=== PATIENT | female | born 1975 | race Caucasian/White ===

== ENCOUNTER → 2020-12-13 | Outpatient (CLI) | payer OTHER ==
[~2020-12-13] MED LIST: IRON18TA PO
[2020-12-13 14:06] LABS: BASOPHILS % (AUTO) 1 % (0-1); EOSINOPHILS % (AUTO) 1 % (1-7); LYMPHOCYTES % (AUTO) 32 % (22-44); MEAN CORPUSCULAR HEMOGLOBIN 19.7 pg (27.0-34.8); MEAN CORPUSCULAR HGB CONC 30.2 g/dL (32.4-35.8); MEAN PLATELET VOLUME 8.2 fL (7.4-10.4); MONOCYTES % (AUTO) 8 % (2-9); NEUTROPHILS % (AUTO) 57 % (42-75); PLATELET COUNT 332 x10^3/uL (130-400); RED BLOOD COUNT 4.54 x10^6/uL (3.82-5.3); RED CELL DISTRIBUTION WIDTH 17.4 % (9.6-15.2)
[2020-12-13 14:16] LABS: MICROSCOPIC AUTO
[2020-12-13 14:21] LABS: ALBUMIN 3.9 g/dL (3.4-5.0); ANION GAP 5 mmol/L (5-15); CHLORIDE 108 mmol/L (98-107)
[2020-12-13 14:23] LABS: ANISOCYTOSIS 1+; MICROCYTOSIS 2+; OVALOCYTES 1+; POLYCHROMASIA 1+
[2020-12-13 14:25] LABS: <PLATELET ESTIMATE> ADEQUATE; <PLT MORPHOLOGY> NORMAL PLT MORPH
[2020-12-13 14:28] LABS: ALANINE AMINOTRANSFERASE 17 U/L (12-78); ALKALINE PHOSPHATASE 56 U/L (45-117); BILIRUBIN,TOTAL 0.3 mg/dL (0.2-1.0); CREATININE 0.63 mg/dL (0.55-1.02); TOTAL PROTEIN 7.9 g/dL (6.4-8.2)
== END | disposition home or self-care (01) ==
LOC: STAR 13:12
PROVIDERS: ATTEND Obstetrics & Gynecology
DX: Z01.812 Encounter for preprocedural laboratory examination (principal); D25.9 Leiomyoma of uterus, unspecified; N92.0 Excessive and frequent menstruation with regular cycle; Z20.822 Contact with and (suspected) exposure to COVID-19
CPT/HCPCS: 36415; 80053; 81001; 84702; 85025; U0003; U0005

== ENCOUNTER 2020-12-17 09:47 | Observation (INO) | payer OTHER ==
[~2020-12-17] VITALS: Ht 168.9 cm; Wt 81.4 kg
[2020-12-17] MEDS ORDERED: CHLORHEXIDINE 15 ML UDC ONE (09:56)
[2020-12-17] MEDS ORDERED: CHLORHEXIDINE 15 ML UDC PO ONE (10:30)
[2020-12-17 10:38] LABS: HCG UR SG 1.007 (1.003-1.030)
[2020-12-17] MEDS: LACTATED RINGERS 1,000 ML IV SCH ×3 (10:39→21:00)
[2020-12-17] MEDS ORDERED: FLUORESCEIN SODIUM 500 MG/5 ML ONE (11:00)
[2020-12-17] MEDS ORDERED: EPINEPHRINE 1 MG/ML, 1ML ONE (11:00)
[2020-12-17] MEDS ORDERED: BUPIVACAINE/PF 0.5% ONE (11:00)
[2020-12-17] MEDS ORDERED: MIDAZOLAM 1 MG/ML, 2ML ONE (11:41)
[2020-12-17] MEDS ORDERED: FENTANYL PF 250 MCG/5ML ONE (11:41)
[2020-12-17] MEDS ORDERED: hydrALAzine 20 MG/ML, 1ML IV PRN (12:00)
[2020-12-17] MEDS ORDERED: ACETAMINOPHEN 325 MG TABLET PO PRN (12:00)
[2020-12-17] MEDS ORDERED: LABETALOL 5MG/ML, 20ML IV PRN (12:00)
[2020-12-17] MEDS ORDERED: MEPERIDINE/PF 25MG/0.5ML IVPush PRN (12:00)
[2020-12-17] MEDS ORDERED: HALOPERIDOL 5 MG/ML IV PRN (12:00)
[2020-12-17] MEDS ORDERED: PROMETHAZINE 25 MG/ML, 1ML IVPush PRN (12:00)
[2020-12-17] MEDS ORDERED: OXYcodone 5 MG/5 ML ORAL.SOL UDC PO PRN (12:00)
[2020-12-17] MEDS ORDERED: DIPHENHYDRAMINE 50 MG/ML, 1ML IVPush PRN (12:00)
[2020-12-17] MEDS ORDERED: HYDROmorphone 1 MG/ML, 1ML INJ IVPush PRN (12:00)
[2020-12-17] MEDS ORDERED: OXYC-302 PO (12:05)
[2020-12-17] MEDS ORDERED: HYDROmorphone 1 MG/ML, 1ML INJ ONE ×2 (14:08→16:31)
[2020-12-17] MEDS ORDERED: KETOROLAC 30 MG/1 ML ONE ×2 (14:10→21:08)
[2020-12-17] MEDS ORDERED: CEFAZOLIN 1,000 MG ONE (15:05)
[2020-12-17] MEDS ORDERED: NEOSTIGMINE 1 MG/ML, 10ML ONE (15:05)
[2020-12-17] MEDS ORDERED: ROCURONIUM 10MG/ML,5ML ONE (15:05)
[2020-12-17] MEDS ORDERED: GLYCOPYRROLATE 0.2MG/1ML, 5ML ONE (15:05)
[2020-12-17] MEDS ORDERED: DEXAMETHASONE 4 MG/ML, 1ML ONE (15:05)
[2020-12-17] MEDS ORDERED: PROPOFOL 10 MG/ML, 20ML ONE (15:05)
[2020-12-17] MEDS ORDERED: SUCCINYLCHOLINE 20 MG/ML, 10ML ONE (15:05)
[2020-12-17] MEDS ORDERED: ONDANSETRON 2MG/ML, 2ML ONE (15:05)
[2020-12-17] MEDS: FENTANYL PF 100 MCG/2ML IV PRN ×2 (15:40→16:10)
[2020-12-17] MEDS ORDERED: OXYcodone 5 MG/5 ML ORAL.SOL UDC ONE (15:57)
[2020-12-17] MEDS ORDERED: FENTANYL PF 100 MCG/2ML ONE (15:57)
[2020-12-17 16:07] VITALS: BP 90/48
[2020-12-17 16:20] VITALS: BP 101/50
[2020-12-17 16:35] VITALS: BP 95/53
[2020-12-17 16:59] VITALS: BP 98/53
[2020-12-17] MEDS ORDERED: ONDANSETRON 2MG/ML, 2ML IVPush PRN (21:00)
[2020-12-17] MEDS: KETOROLAC 30 MG/1 ML IVPush SCH (21:30)
[2020-12-17] MEDS: OXYcodone/APAP 5/325MG TABLET PO PRN (21:42)
[2020-12-18 00:20] VITALS: BP 94/60
[2020-12-18] MEDS: OXYcodone/APAP 5/325MG TABLET PO PRN ×4 (01:25→16:17)
[2020-12-18 02:58] VITALS: BP 90/52
[2020-12-18] MEDS: KETOROLAC 30 MG/1 ML IVPush SCH (03:00)
[2020-12-18] MEDS: LACTATED RINGERS 1,000 ML IV SCH ×2 (03:18→12:17)
[2020-12-18] MEDS ORDERED: KETOROLAC 30 MG/1 ML IVPush PRN (04:00)
[2020-12-18] MEDS ORDERED: MORPHINE SULFATE 4 MG/ML, 1ML IVPush PRN (04:00)
[2020-12-18] MEDS: IBUPROFEN 600 MG TABLET PO SCH ×3 (06:00→16:17)
[2020-12-18 06:54] VITALS: BP 98/58
[2020-12-18 14:00] VITALS: BP 91/56
[2020-12-18] MEDS ORDERED: IBUP-1222 PO (15:32)
[2020-12-20] MEDS ORDERED: IBUPROFEN 600 MG TABLET PO PRN (05:00)
== END 2020-12-18 17:00 | disposition home or self-care (01) ==
LOC: OUT 09:47 → 4NE 21:30 → OUT 23:20 → 4NE 23:21 → DCLOUNGE 12-18 16:47
PROVIDERS: ADMIT Obstetrics & Gynecology; ATTEND Obstetrics & Gynecology
DX: D25.9 Leiomyoma of uterus, unspecified (principal); N92.0 Excessive and frequent menstruation with regular cycle; D50.0 Iron deficiency anemia secondary to blood loss (chronic); N94.6 Dysmenorrhea, unspecified; Z98.51 Tubal ligation status; Z90.710 Acquired absence of both cervix and uterus; Z88.0 Allergy status to penicillin; Z98.891 History of uterine scar from previous surgery; Z79.899 Other long term (current) drug therapy
CPT/HCPCS: 36415; 36430; 52000; 58552; 81025; 82330; 82803; 82947; 84132; 84295; 85014; 85018; 86850; 86900; 86923; 88302; 88307; 96361; 96374; G0378; J0171; J0330; J0690; J1100; J1170; J1885; J2250; J2405; J2704; J2710; J3010; J7120; P9016; S0020

== ENCOUNTER 2020-12-21 17:09 | Inpatient (IN) | payer OTHER ==
[~2020-12-21] VITALS: Ht 167.6 cm; Wt 85.0 kg
[2020-12-21] VITALS (7 sets, daily range): BP systolic 105–118; BP diastolic 53–71
[~2020-12-21 17:09] MED LIST changes: +IBUP-1222 PO; +OXYC-302 PO
--- NOTE | 2020-12-21 17:49 | NUR ---
CC OF "RACING HEART, DIZZINESS, FATIGUE, AND NOW CHEST TIGHTNESS AFTER LAYING FLAT WHILE SLEEPING. HYSTERECTOMY ON THURSDAY WITH 1 UNIT PRBC TRANSFUSION. SO AT BEDSIDE
[2020-12-21 18:10] LABS: BASOPHILS % (AUTO) 1 % (0-1); EOSINOPHILS % (AUTO) 2 % (1-7); LYMPHOCYTES % (AUTO) 22 % (22-44); MEAN CORPUSCULAR HEMOGLOBIN 21.2 pg (27.0-34.8); MEAN CORPUSCULAR HGB CONC 30.8 g/dL (32.4-35.8); MEAN PLATELET VOLUME 8.2 fL (7.4-10.4); MONOCYTES % (AUTO) 9 % (2-9); NEUTROPHILS % (AUTO) 65 % (42-75); PLATELET COUNT 193 x10^3/uL (130-400); RED BLOOD COUNT 2.82 x10^6/uL (3.82-5.3); RED CELL DISTRIBUTION WIDTH 20.8 % (9.6-15.2)
[2020-12-21 18:23] LABS: ALANINE AMINOTRANSFERASE 17 U/L (12-78); ALBUMIN 3.2 g/dL (3.4-5.0); ANION GAP 5 mmol/L (5-15); CALCIUM 8.7 mg/dL (8.5-10.1); CHLORIDE 110 mmol/L (98-107)
[2020-12-21 18:27] LABS: ALKALINE PHOSPHATASE 43 U/L (45-117); BILIRUBIN,TOTAL 0.3 mg/dL (0.2-1.0); TOTAL PROTEIN 6.5 g/dL (6.4-8.2); TROPONIN I < 0.015 ng/mL (0.000-0.045)
[2020-12-21 18:49] LABS: <PLATELET ESTIMATE> ADEQUATE; <PLT MORPHOLOGY> NORMAL PLT MORPH; MICROCYTOSIS 2+
[2020-12-21 18:50] LABS: ANISOCYTOSIS 1+; HYPOCHROMIA 2+; OVALOCYTES 1+
[2020-12-21] MEDS ORDERED: OXYcodone/APAP 5/325MG TABLET ONE (19:47)
[2020-12-21] MEDS ORDERED: ONDANSETRON 2MG/ML, 2ML IVPush ONE (20:00)
[2020-12-21] MEDS ORDERED: MORPHINE SULFATE 4 MG/ML, 1ML IVPush PRN ×2 (20:00→22:00)
[2020-12-21] MEDS ORDERED: OXYcodone/APAP 5/325MG TABLET PO ONE (20:00)
--- NOTE | 2020-12-21 20:41 | NUR ---
PT TO CT
[2020-12-21] MEDS ORDERED: OMNIPAQUE 350 MG/ML, 100ML BOTTLE ONE (20:51)
[2020-12-21] MEDS ORDERED: MORPHINE SULFATE 4 MG/ML, 1ML ONE (20:58)
[2020-12-21] MEDS ORDERED: ONDANSETRON 2MG/ML, 2ML ONE (20:58)
[2020-12-21] MEDS ORDERED: ONDANSETRON 2MG/ML, 2ML IVPush PRN ×2 (22:00→22:30)
--- NOTE | 2020-12-21 22:02 | NUR ---
CONSUMER STUDIES PROFESSOR AT BEDSIDE
--- NOTE | 2020-12-21 22:17 | NUR ---
BREAK RN: PER REGIONAL VICE PRESIDENT SURGICAL SALES PROVIDER. PT TO HAVE REPEAT H&H DRAWN 4 HOURS POST BLOOD TRANSFUSION AND THEN ANOTHER REPEAT 8 HOURS AFTER PRIOR DRAW. PT ALLOWED TO HAVE REGULAR DIET, SCD'S WHILE IN BED AND BEDREST. PT WILL BE ADMITTED TO HOSPITAL FOR OBSERVATION.
--- NOTE | 2020-12-21 22:20 | NUR ---
PT REPORT "I FEEL MUCH BETTER" AFTER 2ND TRANSFUSION.
--- NOTE | 2020-12-21 22:29 | NUR ---
REPORT TO CHAVEZ BACK
[2020-12-21] MEDS ORDERED: DOCUSATE 100 MG CAPSULE PO PRN (22:30)
[2020-12-21] MEDS ORDERED: IBUPROFEN 600 MG TABLET PO PRN (22:30)
[2020-12-21] MEDS ORDERED: ACETAMINOPHEN 325 MG TABLET PO PRN (22:30)
[2020-12-21] MEDS ORDERED: ONDANSETRON ODT 4 MG PO PRN (22:30)
[2020-12-21] MEDS ORDERED: POLY17PO5 PO (23:08)
[2020-12-21] MEDS ORDERED: IBUP-1222 PO (23:08)
[2020-12-22] VITALS (7 sets, daily range): BP systolic 103–111; BP diastolic 65–73
[2020-12-22] MEDS ORDERED: LORazepam 0.5MG TABLET PO PRN
[2020-12-22] MEDS: OXYcodone/APAP 5/325MG TABLET PO PRN ×3 (01:14→13:07)
[2020-12-22 02:57] LABS: BASOPHILS % (AUTO) 1 % (0-1); EOSINOPHILS % (AUTO) 2 % (1-7); LYMPHOCYTES % (AUTO) 27 % (22-44); MEAN CORPUSCULAR HEMOGLOBIN 23.3 pg (27.0-34.8); MEAN CORPUSCULAR HGB CONC 32.4 g/dL (32.4-35.8); MEAN PLATELET VOLUME 9.1 fL (7.4-10.4); MONOCYTES % (AUTO) 10 % (2-9); NEUTROPHILS % (AUTO) 61 % (42-75); PLATELET COUNT 194 x10^3/uL (130-400); RED CELL DISTRIBUTION WIDTH 22.6 % (9.6-15.2)
[2020-12-22 03:37] LABS: ANISOCYTOSIS 1+; MICROCYTOSIS 2+
[2020-12-22 03:38] LABS: <PLATELET ESTIMATE> ADEQUATE; HYPOCHROMIA 1+; OVALOCYTES 1+; TEAR DROPS 1+
[2020-12-22 03:39] LABS: <PLT MORPHOLOGY> NORMAL PLT MORPH; POLYCHROMASIA 1+
[2020-12-22 06:35] LABS: BASOPHILS % (AUTO) 1 % (0-1); EOSINOPHILS % (AUTO) 2 % (1-7); LYMPHOCYTES % (AUTO) 24 % (22-44); MEAN CORPUSCULAR HEMOGLOBIN 23.2 pg (27.0-34.8); MEAN CORPUSCULAR HGB CONC 31.9 g/dL (32.4-35.8); MEAN PLATELET VOLUME 8.5 fL (7.4-10.4); MONOCYTES % (AUTO) 9 % (2-9); NEUTROPHILS % (AUTO) 64 % (42-75); PLATELET COUNT 195 x10^3/uL (130-400); RED BLOOD COUNT 3.17 x10^6/uL (3.82-5.3); RED CELL DISTRIBUTION WIDTH 22.6 % (9.6-15.2)
[2020-12-22] MEDS ORDERED: FAMOTIDINE 20 MG TABLET PO SCH (09:00)
[2020-12-22] MEDS ORDERED: SODIUM CHLORIDE FLUSH 10ML SYR IVF SCH (09:00)
== END 2020-12-22 17:39 | disposition home or self-care (01) | DRG 760 ==
LOC: ED 17:30 → EDIP 22:03 → 4NE 22:50
PROVIDERS: ADMIT Family Medicine; ATTEND Family Medicine
PROC: 30233N1 Transfusion of Nonautologous Red Blood Cells into Peripheral Vein, Percutaneous Approach (ICD-10-PCS; principal; 2020-12-21)
DX: D25.9 Leiomyoma of uterus, unspecified (principal); D62 Acute posthemorrhagic anemia; Z87.891 Personal history of nicotine dependence; Z90.710 Acquired absence of both cervix and uterus; Z98.891 History of uterine scar from previous surgery; Z88.0 Allergy status to penicillin
CPT/HCPCS: 36415; 36430; 71045; 74177; 80053; 84484; 85014; 85018; 85025; 86850; 86900; 86923; 93005; 99285; G0378; J2405; Q9967; J2270; P9016

== ENCOUNTER 2020-12-27 09:54 | Inpatient (IN) | payer OTHER ==
[~2020-12-27] VITALS: Ht 167.6 cm; Wt 86.5 kg
[~2020-12-27 09:54] MED LIST changes: +POLY17PO5 PO
--- NOTE | 2020-12-27 11:23 | NUR ---
THIS IS A 45 YO F W/ C/O RT CALF PAIN AND SOB S/P HYSTERECTOMY 12/17/20. PT RESTING ON GURNEY W/ CALL LIGHT IN REACH AND SIDE RAILS UPX2. FAMILY AT BEDSIDE. RESP EVEN AND UNLABORED, ARIELA.
[2020-12-27] MEDS ORDERED: MAALOX/HYOSCYAMINE/LIDOCAINE 45 ML BTL ONE (11:26)
[2020-12-27] MEDS ORDERED: MAALOX/HYOSCYAMINE/LIDOCAINE 45 ML BTL PO ONE (11:30)
[2020-12-27 11:54] LABS: BASOPHILS % (AUTO) 1 % (0-1); EOSINOPHILS % (AUTO) 1 % (1-7); LYMPHOCYTES % (AUTO) 20 % (22-44); MEAN CORPUSCULAR HEMOGLOBIN 23.2 pg (27.0-34.8); MEAN CORPUSCULAR HGB CONC 31.1 g/dL (32.4-35.8); MEAN PLATELET VOLUME 8.7 fL (7.4-10.4); MONOCYTES % (AUTO) 6 % (2-9); NEUTROPHILS % (AUTO) 72 % (42-75); PLATELET COUNT 301 x10^3/uL (130-400); RED CELL DISTRIBUTION WIDTH 23.5 % (9.6-15.2)
[2020-12-27 12:02] LABS: ALANINE AMINOTRANSFERASE 14 U/L (12-78); ALBUMIN 3.5 g/dL (3.4-5.0); ANION GAP 7 mmol/L (5-15); CHLORIDE 111 mmol/L (98-107); CREATININE 0.63 mg/dL (0.55-1.02)
[2020-12-27 12:07] LABS: ALKALINE PHOSPHATASE 53 U/L (45-117); BILIRUBIN,TOTAL 0.4 mg/dL (0.2-1.0); TOTAL PROTEIN 7.2 g/dL (6.4-8.2); TROPONIN I < 0.015 ng/mL (0.000-0.045)
[2020-12-27 12:19] LABS: ANISOCYTOSIS 1+; HYPOCHROMIA 1+; MICROCYTOSIS 1+; OVALOCYTES 1+; POLYCHROMASIA 1+; TEAR DROPS 1+
[2020-12-27 12:20] LABS: <PLATELET ESTIMATE> ADEQUATE; <PLT MORPHOLOGY> NORMAL PLT MORPH
--- NOTE | 2020-12-27 12:28 | NUR ---
US AT BEDSIDE.
--- NOTE | 2020-12-27 13:12 | NUR ---
PIV STARTED FOR CTA.
[2020-12-27] MEDS ORDERED: ACETAMINOPHEN 500 MG TABLET ONE (14:04)
[2020-12-27] MEDS ORDERED: ACETAMINOPHEN 500 MG TABLET PO ONE (14:30)
--- NOTE | 2020-12-27 14:40 | NUR ---
break RN: pt sitting up on gurney in position of comfort. chart up for MD recheck
[2020-12-27] MEDS ORDERED: OMNIPAQUE 350 MG/ML, 75ML BOTTLE ONE (15:11)
[2020-12-27] MEDS ORDERED: ENOXAPARIN 80 MG/0.8 ML ONE (15:16)
[2020-12-27] MEDS: ENOXAPARIN 80 MG/0.8 ML SQ SCH (15:23)
--- NOTE | 2020-12-27 15:48 | NUR ---
REPORT GIVEN TO TUNG BACK. PT READY FOR TRANSPORT AT THIS TIME.
[2020-12-27] MEDS ORDERED: ACETAMINOPHEN 325 MG TABLET PO PRN (16:00)
[2020-12-27 17:56] VITALS: BP 109/67
[2020-12-27] MEDS ORDERED: DIPHENHYDRAMINE 25 MG CAPSULE PO PRN (18:30)
[2020-12-27 21:04] VITALS: BP 111/68
[2020-12-28 01:20] VITALS: BP 101/63
[2020-12-28] MEDS: ENOXAPARIN 80 MG/0.8 ML SQ SCH (04:33)
[2020-12-28 05:24] LABS: BASOPHILS % (AUTO) 1 % (0-1); EOSINOPHILS % (AUTO) 2 % (1-7); LYMPHOCYTES % (AUTO) 21 % (22-44); MEAN CORPUSCULAR HEMOGLOBIN 23.5 pg (27.0-34.8); MEAN CORPUSCULAR HGB CONC 31.7 g/dL (32.4-35.8); MEAN PLATELET VOLUME 8.8 fL (7.4-10.4); MONOCYTES % (AUTO) 7 % (2-9); NEUTROPHILS % (AUTO) 69 % (42-75); PLATELET COUNT 296 x10^3/uL (130-400); RED BLOOD COUNT 4.09 x10^6/uL (3.82-5.3); RED CELL DISTRIBUTION WIDTH 23.1 % (9.6-15.2)
[2020-12-28 05:36] LABS: CALCIUM 8.8 mg/dL (8.5-10.1); CHLORIDE 111 mmol/L (98-107)
[2020-12-28 05:40] LABS: ANION GAP 3 mmol/L (5-15); CREATININE 0.68 mg/dL (0.55-1.02)
[2020-12-28 07:12] VITALS: BP 100/62
[2020-12-28] MEDS ORDERED: BUTALB/APAP/CAFFEINE 50MG/325MG/40MG ONE (09:29)
[2020-12-28] MEDS ORDERED: BUTALB/APAP/CAFFEINE 50MG/325MG/40MG PO ONE (09:30)
[2020-12-28] MEDS ORDERED: APIX5TAB PO (12:48)
[2020-12-28 14:12] VITALS: BP 108/68
[2020-12-28] MEDS ORDERED: APIXABAN 5 MG TABLET ONE (16:07)
[2020-12-28] MEDS ORDERED: APIXABAN 5 MG TABLET PO ONE (16:30)
[2020-12-28] MEDS ORDERED: APIXABAN 5 MG TABLET PO SCH (21:00)
[2020-12-29] MEDS ORDERED: APIXABAN 5 MG TABLET PO SCH (09:00)
== END 2020-12-28 17:08 | disposition home or self-care (01) | DRG 176 ==
LOC: ED 14:13 → EDIP 14:59 → 4WST 18:34
PROVIDERS: ADMIT Internal Medicine; ATTEND Internal Medicine
DX: I26.99 Other pulmonary embolism without acute cor pulmonale (principal); D64.9 Anemia, unspecified; Z79.01 Long term (current) use of anticoagulants; Z87.891 Personal history of nicotine dependence; Z90.710 Acquired absence of both cervix and uterus; Z88.0 Allergy status to penicillin
CPT/HCPCS: 36415; 71045; 71275; 76700; 80048; 80053; 83690; 84484; 85025; 85379; 93005; 99285; G0378; J1650; Q9967